=== PATIENT | female | born 2005 | race Caucasian/White ===

== ENCOUNTER 2024-03-04 19:12 | Emergency (ER) | payer OTHER ==
[~2024-03-04] VITALS: Ht 165.1 cm; Wt 65.0 kg
[2024-03-05 00:07] VITALS: BP 107/66; TEMP 97.6; O2SAT 99
[2024-03-05] MEDS ORDERED: IBUP-1022 PO (00:08)
== END 2024-03-05 00:17 | disposition home or self-care (01) ==
LOC: M ED 19:12
DX: S06.0X0A Concussion without loss of consciousness, initial encounter (principal); W50.1XXA Accidental kick by another person, initial encounter; Y92.009 Unspecified place in unspecified non-institutional (private) residence as the place of occurrence of the external cause; Y93.9 Activity, unspecified; Y99.9 Unspecified external cause status; Z87.820 Personal history of traumatic brain injury; F17.200 Nicotine dependence, unspecified, uncomplicated; Z88.0 Allergy status to penicillin; Z88.1 Allergy status to other antibiotic agents

== ENCOUNTER 2024-08-16 12:43 | Emergency (ER) | payer OTHER ==
[~2024-08-16] VITALS: Ht 165.1 cm; Wt 62.4 kg
[~2024-08-16 12:43] MED LIST: IBUP-1022 PO
[2024-08-16 13:23] LABS: HEMATOCRIT 37.9 % (36.0-47.0); HEMOGLOBIN 12.6 g/dl (12.0-15.5); MEAN CORPUSCULAR HEMOGLOBIN 27.9 pg (27.0-33.0); MEAN CORPUSCULAR HGB CONC 33.2 g/dl (32.0-36.5); MEAN CORPUSCULAR VOLUME 83.8 fl (80.0-96.0); PLATELET COUNT, AUTOMATED 266 10^3/uL (150-450); RED BLOOD COUNT 4.52 10^6/uL (4.00-5.40); WHITE BLOOD COUNT 6.1 10^3/uL (4.0-10.0)
[2024-08-16 13:49] LABS: AMPHETAMINES LEVEL URINE NEGATIVE (NEGATIVE); BARBITURATES URINE NEGATIVE (NEGATIVE); BENZODIAZEPINES URINE NEGATIVE (NEGATIVE); COCAINE METABOLITE URINE NEGATIVE (NEGATIVE)
[2024-08-16 13:50] LABS: METHADONE URINE NEGATIVE (NEGATIVE); OPIATES URINE NEGATIVE (NEGATIVE); PHENCYCLIDINE URINE NEGATIVE (NEGATIVE)
[2024-08-16 13:51] LABS: ETHYL ALCOHOL (ETHANOL) < 0.003 % (0.000-0.010)
[2024-08-16 13:53] LABS: ALBUMIN 3.3 G/DL (3.2-5.2); ALKALINE PHOSPHATASE 59 U/L (35-104); ALT/SGPT 16 U/L (7.0-40); AST/SGOT 11 U/L (<34); BILIRUBIN,DIRECT 0.3 MG/DL (<0.4); BILIRUBIN,TOTAL 1.1 MG/DL (0.3-1.2); BLOOD UREA NITROGEN 11 MG/DL (9-23); CALCIUM LEVEL 9.3 MG/DL (8.5-10.1); CARBON DIOXIDE LEVEL 24 MMOL/L (20-31); CHLORIDE LEVEL 109 MMOL/L (98-107); CREATININE FOR GFR 0.76 MG/DL (0.55-1.30); GLUCOSE, FASTING 119 MG/DL (60-100); POTASSIUM SERUM 3.9 MMOL/L (3.5-5.1); SALICYLATE LEVEL < 3.0 MG/DL (<30); SODIUM LEVEL 142 MMOL/L (136-145); TOTAL PROTEIN 7.2 G/DL (5.7-8.2)
[2024-08-16 13:55] LABS: CANNABINOIDS URINE POSITIVE (NEGATIVE)
[2024-08-16 13:56] LABS: THYROID STIMULATING HORMONE 1.048 uIU/ML (0.48-4.17)
[2024-08-16 15:24] LABS: HCG, SERUM QUALITATIVE NEGATIVE (NEGATIVE)
[2024-08-16] MEDS ORDERED: HOME MED LIST COMPLETE! XX SCH (15:50)
[2024-08-16 16:22] VITALS: BP 103/64; TEMP 97.9; O2SAT 99
== END 2024-08-16 16:23 | disposition home or self-care (01) ==
LOC: M ED 12:43
DX: S40.812A Abrasion of left upper arm, initial encounter (principal); X78.9XXA Intentional self-harm by unspecified sharp object, initial encounter; Y92.9 Unspecified place or not applicable; Y93.9 Activity, unspecified; Y99.9 Unspecified external cause status; F32.A Depression, unspecified; Z88.0 Allergy status to penicillin

== ENCOUNTER 2024-08-20 20:36 | Emergency (ER) | payer OTHER ==
[~2024-08-20] VITALS: Ht 165.1 cm; Wt 63.0 kg
[2024-08-20 20:39] VITALS: BP 116/74; TEMP 97.2; O2SAT 97
== END 2024-08-20 21:35 | disposition left against medical advice (07) ==
LOC: M ED 20:36
DX: Z53.21 Procedure and treatment not carried out due to patient leaving prior to being seen by health care provider (principal)